=== PATIENT | male | born 1955 | race Caucasian/White ===

== ENCOUNTER 2016-09-12 10:55 | Emergency (ER) | payer OTHER ==
[~2016-09-12] VITALS: Ht 152.4 cm; Wt 62.4 kg
[2016-09-12 14:58] VITALS: BP 155/68
== END 2016-09-12 14:58 | disposition home or self-care (01) ==
LOC: ED 10:55
DX: M25.571 Pain in right ankle and joints of right foot (principal); Q66.89 Other specified congenital deformities of feet
CPT/HCPCS: J1885

== ENCOUNTER → 2018-08-09 | Outpatient (CLI) | payer OTHER ==
[~2018-08-09] VITALS: Ht 152.4 cm; Wt 59.0 kg
[2018-08-09 10:21] LABS: BASOPHIL % 0.4 % (0-2); PLATELET COUNT 164 x10^3mcL (130-400)
[2018-08-09 10:25] LABS: CALCIUM 8.6 mg/dL (8.5-10.1); CARBON DIOXIDE 31.4 mmol/L (21-32); CHLORIDE SERUM 106 mmol/L (98-107); CREATININE SERUM 0.8 mg/dL (0.7-1.3); GFR1 > 60 mL/min; GLUCOSE SERUM 94 mg/dL (74-106); POTASSIUM SERUM 4.2 mmol/L (3.5-5.1); SODIUM SERUM 142 mmol/L (136-145)
== END | disposition home or self-care (01) ==
LOC: DS 08:52 → RD 11:00 → DS 08-12 11:00 → OR 08-12 11:00 → EDSTATUS 08-12 11:00
PROVIDERS: Surgery
DX: K40.90 Unilateral inguinal hernia, without obstruction or gangrene, not specified as recurrent (principal)

== ENCOUNTER 2018-11-13 18:28 | Emergency (ER) | payer OTHER ==
[~2018-11-13] VITALS: Ht 152.4 cm; Wt 58.5 kg
[2018-11-13 18:31] VITALS: Ht 152.4 cm; Wt 58.5 kg
[2018-11-13 19:10] VITALS: BP 157/100
== END 2018-11-13 19:10 | disposition home or self-care (01) ==
LOC: ED 18:28
DX: J34.0 Abscess, furuncle and carbuncle of nose (principal); J45.909 Unspecified asthma, uncomplicated; J44.9 Chronic obstructive pulmonary disease, unspecified; Z98.890 Other specified postprocedural states

== ENCOUNTER 2019-01-26 14:23 | Inpatient (IN) | payer OTHER, MEDICAID ==
[~2019-01-26] VITALS: Ht 152.4 cm; Wt 53.3 kg
[2019-01-26 14:45] VITALS: Ht 152.4 cm; Wt 53.3 kg
--- NOTE | 2019-01-26 14:59 | NUR ---
PT AMBULATORY WITH STEADY GAIT TO RM
--- NOTE | 2019-01-26 15:00 | NUR ---
PT C/O ABSCESS TO RIGHT THIGH SINCE THURSDAY, PT STS "IT THINK IT IS A BUG BITE I WAS WORKING IN MY GARDEN ON THURSDAY" PT STS HE WENT TO [facility]RG[facility] THURSDAY AND THEY GAVE HIM AX HOWEVEVER "IT IS GETTING BIGGER" WITH 10/10 PAIN, DENIES HX DM PT IS AAOX4 IN NO ACUTE DISTRESS, ABSCESS WITH ERYTHEMA NOTED TO RIGHT THIGH
--- NOTE | 2019-01-26 15:10 | NUR ---
US BY MD ARNDT IN PROGRESS
--- NOTE | 2019-01-26 15:10 | NUR ---
MD ARNDT AT BEDSIDE PERFORMING MSE
--- NOTE | 2019-01-26 15:25 | NUR ---
PORTABLE XRAY AT BEDSIDE
[2019-01-26 15:32] LABS: BASOPHIL % 0.3 % (0-2); PLATELET COUNT 183 x10^3mcL (130-400); RED CELL DISTRIBUTION WIDTH 13.2 % (11.5-14.5)
--- NOTE | 2019-01-26 15:38 | NUR ---
PT REPORTS HX MRSA "ON HIS NOSE"
[2019-01-26 15:41] LABS: CARBON DIOXIDE 27.2 mmol/L (21-32); CHLORIDE SERUM 103 mmol/L (98-107); CREATININE SERUM 0.8 mg/dL (0.7-1.3); GFR1 > 60 mL/min; GLUCOSE SERUM 98 mg/dL (74-106); POTASSIUM SERUM 4.1 mmol/L (3.5-5.1); SODIUM SERUM 141 mmol/L (136-145)
--- NOTE | 2019-01-26 15:43 | NUR ---
PT IN POSITION OF COMFORT TALKING ON HIS PHONE IN NAD, RESP E/U, WILL CONTINUE TO MONITOR
[2019-01-26 15:45] LABS: ALBUMIN 3.3 g/dL (3.4-5.0); ALKALINE PHOSPHATASE 76 U/L (46-116); ALT/SGPT 44 U/L (16-63); AST/SGOT 24 U/L (15-37); BILIRUBIN TOTAL 0.4 mg/dL (0.20-1.00); TOTAL PROTEIN, SERUM 6.6 g/dL (6.4-8.2)
--- NOTE | 2019-01-26 16:45 | NUR ---
PT IN POSITION OF COMFORT WATCHING TV, PT DENIES NEED FOR PAIN MEDS AT THIS TIME, RESPS E/U IN NAD
[2019-01-26 17:28] LABS: MAGNESIUM 2.1 mg/dL (1.8-2.4); PHOSPHOROUS 3.5 mg/dL (2.5-4.9)
[2019-01-26 17:32] LABS: CHOLESTEROL/HDL RATIO 1.8
[2019-01-26 17:37] VITALS: BP 157/76
--- NOTE | 2019-01-26 17:48 | NUR ---
AWAKE AND ALERT, ORIENTED TO NAME, PLACE, TIME AND SITUATION. ABLE TO MAKE NEEDS KNOWN. BREATHING EVEN AND UNLABORED ON ROOM AIR. ADMISSION HISTORY AND ASSESSMENT DONE. ADMITTED FOR COMPLAINT OF PAIN, SWELLING AND REDNESS TO RIGHT UPPER LATERAL THIGH WHICH PT ATTRIBUTES TO A "BUG BITE". ENDORSED TO NURSE VAUGHAN.
--- NOTE | 2019-01-26 18:30 | NUR ---
PATIENT SEATED AT BEDSIDE EATING DINNER TRAY. HAS MILD BUT TOLERABLE PAIN TO R LEG. DENIES PRN PAIN CONTROL. WILL ENDORSE TO ONCOMING SHIFT, RESIDENT HAS NOT YET COME TO INTERVIEW PATIENT. CALL LIGHT IN REACH.
[2019-01-26 19:45] VITALS: BP 130/73
--- NOTE | 2019-01-26 19:45 | NUR ---
RECEIVED PT AWAKE ALERT AN DVERBALLY RESPONSIVE.DENIES CHESTPAIN AT THIS TIME.BP 130/73 MMHG,HR 81.PT WITH R THIGH WOUND WITH REDNESS/SWELLING NOTED.TENDER TO TOUCH.VT 10/10 TO THROBBING/SHARP PAIN.NORCO 7.5 MG PO ADMINISTERED.COMFORT MEASURES RENDRED.WEARS L FOOT BRACE TO PREVENT FOORT DROP.ON CONTACT ISOLATION FOR HX MRSA TO NARES.WILL OBSERVE GOODHANDWASHING TECHNIQUE.WILL CONTINUE TO MONITOR.
[2019-01-26 23:38] LABS: microscopic required? NO
[2019-01-26 23:47] LABS: UA SPECIFIC GRAVITY >=1.030 (1.005-1.035); urine erythrocyte NEGATIVE (NEGATIVE)
[2019-01-26 23:57] LABS: AMPHETAMINE QUAL UR NONE DETECTED (See below)
--- NOTE | 2019-01-27 04:36 | NUR ---
PT SLEPT WELL ALL NIGHT.MEDICATED WITH NORCO 7.5 MG PO X1 FOR R THIGH PAIN WITH GOOD RELIEF.ALL NEEDS MET.REMAINS ON CONTACT ISOLATION FOR HX MRSA TO NARES.GOODHANDWASHING TECHNIQUE OBSERVED.WILL CONTINUE TO MONITOR.
[2019-01-27 05:46] VITALS: BP 133/60
--- NOTE | 2019-01-27 06:10 | NUR ---
ULTRASOUND TO R THIGH BEING DONE AT THIS TIME.MORPHINE 1 MG IVP ADMIBNISTERED ORDERED.WILL CONTINUE TO MONITOR.
[2019-01-27 06:16] LABS: CALCIUM 8.3 mg/dL (8.5-10.1); CARBON DIOXIDE 26.8 mmol/L (21-32); CHLORIDE SERUM 108 mmol/L (98-107); CREATININE SERUM 0.8 mg/dL (0.7-1.3); GFR1 > 60 mL/min; GLUCOSE SERUM 89 mg/dL (74-106); POTASSIUM SERUM 4.2 mmol/L (3.5-5.1); SODIUM SERUM 142 mmol/L (136-145)
[2019-01-27 06:19] LABS: BASOPHIL % 0.4 % (0-2); PLATELET COUNT 176 x10^3mcL (130-400); RED CELL DISTRIBUTION WIDTH 13.1 % (11.5-14.5)
[2019-01-27 07:47] VITALS: BP 157/59
--- NOTE | 2019-01-27 09:36 | NUR ---
PATIENT SAT UP AT SIDE OF BED, C/O RT THIGH PAIN 6/10 AND MOVEMENT INTENSE MORE. NORCO 1 TAB PO AND DUE MED GIVEN. ANCEF 1 GM IVPB INFUSING TO RW IV INTACT AND PATENT, NEEDS MET. CONT TO MONITOR.
--- NOTE | 2019-01-27 10:59 | NUR ---
DR. ORNELAS IN THE ROOM SEEN PATIENT AND DISCUSS PLAN FOR INCISON AND DRAINAGE OF RT THIGH. KEEP PATIENT NPO. PATIENT WAS INSTRUCTED NOT TO DRINK AND EAT ANYTHING.
--- NOTE | 2019-01-27 12:57 | NUR ---
PATIENT BACK FROM CT IN BED NO COMPLAIN, IV PATENT AND FLUSH WELL. CONNECTED TO IVF ORDERED. NEEDS MET. CALL LIGHT WITHIN REACH.
--- NOTE | 2019-01-27 14:04 | NUR ---
Initial Nutrition Assessment: 203/B CURT AGGARWAL IA HR Dx: R leg cellulitis PMHx: Osteoarthritis, Hypercholesterolemia, Seasonal Allergies, Left inguinal Hernia PSHx: Other (hernia repair-1984), 3 Spinal fusion surgeries: 1985, 1999, and 2013 Labs: BUN 20H, CA 8.3L Meds: Colace, morphine, norco, zofran Diet: Regular PO Intake: (01/27) breakfast 100% Ht: 152.4 cm (60") Wt: 53.2 kg (117#) BMI: 22.9 kg/m2 Bed scale: 57.4 kg IBW: 106# (48 kg) %IBW:110 UBW: 117-120# Age: 63/M Food Allergies: NKFA Skin: scabby wound with redness and swelling to R upper lateral thigh Wagner: 21 Edema: none GI: Last BM: 01/24 Per H&P, Pt is a 63 yoM with PMH of Osteoarthritis and Hypercholesterolemia who came with cc of right leg lesion. Pt is an avid food order delivery runner and thinks that a black may have bitten him on his upper thigh. RDN Visit (01/27): Patient was alert and oriented. Patient's diet has been changed to NPO as pt. will be having I&D with Dr. Zavala either tonight or tomorrow morning per progress note (01/27). FNS received consult for 'mild malnutrition' on 01/27. Problem with: N/V/D/C: no Problems with: Chewing/Swallowing: none Current appetite: good Recent wt change: none %wt change: n/a Vitamin/Supplement use: centrum x 1 day Special diet at home: regular Physical activity: gardening Nutrition education given: Patient did not have any diet/ nutrition related questions at this time. Food-drug interactions: Colace- high fiber w/4675-7209 ml fluids Education given: n/a Estimated Nutritional Needs Based on current body weight 53 kg Energy: 1385-4141 kcal/d (25-30 kcal/kg) Protein: 53-64 g/d (1.0-1.2 g/kg) - geriatric maintenance/ inflammation Fluid: 2846-3864 ml/d (1 ml/kcal) or per doctor Nutrition Diagnosis 1. Increased calorie and protein needs related to inflammation/cellulitis as evidenced by estimated calorie and protein needs. Intervention 1. Recommend Regular diet post- op if medically appropriate/tolerated. Monitor/Evaluate Goal: PO intake at least 75% of estimated needs Monitor: PO intake, Labs, GI function F/U in 3-5 days as moderate risk
--- NOTE | 2019-01-27 14:04 | NUR ---
1. Recommend Regular diet post- op if medically appropriate/tolerated
--- NOTE | 2019-01-27 15:10 | NUR ---
PATIENT RESTING IN BED WITH FAMILY MEMBER AT BEDSIDE, UPDATE NO TIME FOR SURGERY YET. NEEDS MET. CONT TO MONITOR.
--- NOTE | 2019-01-27 16:06 | NUR ---
PATIENT RESTING IN BED NO COMPLAIN, WATCHING TV. VANCOMYCIN 1GM IVPB INFUSING TO RW IV PATENT. CONT TO MONITOR.
[2019-01-27 17:12] VITALS: BP 137/67
--- NOTE | 2019-01-27 17:51 | NUR ---
PATIENT RESTING IN BED EYES CLOSED. REMAIN NPO FOR POSSIBLE SURGERY TONIGHT. NO DISTRESS NOTED. CONT TO MONITOR.
--- NOTE | 2019-01-27 18:29 | NUR ---
DUMPER ASSIST PATIENT WITH BED BATH, NORCO 1 TAB PO GIVEN WITH SIP OF WATER FOR 10/10 TO RT THIGH. CONT TO MONITOR.
--- NOTE | 2019-01-27 19:30 | NUR ---
RECEIVED PT FROM DAY SHIFT RN. PT AAOX4 DENIES MURPHY/DIZZINESS. MED SURG PT DENIES CHEST PAIN/PRESSURE. LUNG SOUNDS CTA ON RA WITH NO SOB NOTED. IV RW PATENT, SL. RIGHT THIGH ERYTHEMA/EDEMA NOTED. PT DENIES ANY PAIN OR DISCOMFORT AT THIS TIME. CALL BUTTON WITHIN REACH. SAFETY PRECAUTIONS IN PLACE. FAMILY AT BEDSIDE. WILL CONTINUE TO MONITOR.
[2019-01-27 19:59] VITALS: BP 141/66
--- NOTE | 2019-01-27 23:04 | NUR ---
RECEIVED A CALL FROM DR ORNELAS AT THIS TIME, READ BACK CT RESULTS. NO NEW ORDERS AT THIS TIME. PER DR ORNELAS PT PROCEDURE WILL BE 01/28/19 AT 10 AM.
--- NOTE | 2019-01-28 01:00 | NUR ---
PT RESTING. BREATHING EVEN AND UNLABORED WITH NO SIGNS OF DISTRESS. CALL BUTTON WITHIN REACH. SAFETY PRECAUTIONS IN PLACE. WILL CONTINUE TO MONITOR.
--- NOTE | 2019-01-28 05:08 | NUR ---
PT SLEPT MOST OF THE NIGHT WITH NO SIGNS OF DISTRESS. BREATHING EVEN AND UNLABORED ON RA. PT IV PATENT, SL. PT DENIES ANY PAIN OR DISCOMFORT. PT MEDICATED PER EMAR. PT NPO SINCE MIDNIGHT. CALL BUTTON WITHIN REACH. SAFETY PRECAUTIONS IN PLACE. WILL CONTINUE TO MONITOR AND ENDORSE CARE TO DAY SHIFT RN.
[2019-01-28 05:23] VITALS: BP 126/60
[2019-01-28 06:11] LABS: BASOPHIL % 0.4 % (0-2); PLATELET COUNT 213 x10^3mcL (130-400); RED CELL DISTRIBUTION WIDTH 13.2 % (11.5-14.5)
[2019-01-28 06:25] LABS: CALCIUM 8.7 mg/dL (8.5-10.1); CARBON DIOXIDE 27.4 mmol/L (21-32); CHLORIDE SERUM 108 mmol/L (98-107); CREATININE SERUM 0.7 mg/dL (0.7-1.3); GFR1 > 60 mL/min; GLUCOSE SERUM 92 mg/dL (74-106); MAGNESIUM 1.9 mg/dL (1.8-2.4); PHOSPHOROUS 3.9 mg/dL (2.5-4.9); POTASSIUM SERUM 3.9 mmol/L (3.5-5.1); SODIUM SERUM 143 mmol/L (136-145)
--- NOTE | 2019-01-28 07:23 | NUR ---
PT RESTING, DENIES PAIN. NO SIGNS OF DISTRESS. ENDORSED CARE TO DAY SHIFT RN, ALL QUESTIONS ADDRESSED.
--- NOTE | 2019-01-28 07:35 | NUR ---
RECEIVED PATIENT RESTING IN BED COMFORTABLY A/O X4, NO NEURO DEFICITS NOTED. BREATHING EVEN AND UNLABBORED ON ROOM AIR, DENIES SOB, NO DISTRESS NOTED, DENIES CHEST PAIN. IV TO RW H/L INTACT AND PATENT. PATIENT NOTED WITH REDNESS AND SLIGHT SWELLING TO RIGHT OUTER THIGH, MARKED. PATIENT IS NPO FOR PROCEDURE THIS AM. GARCIA INSERTER OPERATOR AT BEDSIDE, ALL QUESTIONS AND CONCERNS ADDRESSED. INSTRUCTED PATIENT TO CALL FOR ASSISTANCE IF NEEDED. SAFETY PRECAUTIONS MAINTAINED. WILL MONITOR.
[2019-01-28 08:31] VITALS: BP 148/64
--- NOTE | 2019-01-28 09:00 | NUR ---
PATIENT SITTING UP AT EDGE USING CHG WIPES. NO DISTRESS NOTED, ALL NEEDS ATTENDED TO, SAFETY PRECAUTIONS MAINTAINED. WILL MONITOR.
--- NOTE | 2019-01-28 09:40 | NUR ---
PATIENT TAKEN DOWN TO OR VIA GURNEY FOR PROCEDURE.
--- NOTE | 2019-01-28 12:53 | NUR ---
RECEIVED PATIENT BACK FOR PACU S/P I&D RIGHT THIGH WITH BIOPSY. PATIENT A/O X4, ABLE TO AMBULATE FROM GURNEY TO BED, SITTING UP AT EDGE OF BED, DENIES PAIN, NO DISTRESS NOTED, SON AT BEDSIDE. IV TO RW H/L INTACT AND PATENT, DRESSING TO RT THIGH CDI. VSS. ALL NEEDS ATTENDED TO, SAFETY PRECAUTIONS MAINTAINED. WILL MONITOR.
[2019-01-28 12:56] VITALS: BP 152/73
--- NOTE | 2019-01-28 14:14 | NUR ---
PATIENT SITTING UP AT EDGE OF BED EATING LUNCH, TOLERATING WELL, NO DISTRESS NOTED, DENIES ANY PAIN. ALL NEEDS ATTENDED TO, SAFETY PRECAUTIONS MAINTAINED. WILL MONITOR.
--- NOTE | 2019-01-28 16:34 | NUR ---
PATIENT SITTING UP AT EDGE OF BED ON HIS CELL PHONE, NO DISTRESS NOTED, DENIES ANY PAIN. DUE MEDICATION GIVEN, IV TO RW INTACT INFUSING IV ABX WELL. ALL NEEDS ATTENDED TO, SAFETY PRECAUTIONS MAINTAINED. WILL MONITOR.
--- NOTE | 2019-01-28 16:45 | NUR ---
RECEIVED ENDORSEMENT FROM JOSH HOANG.
--- NOTE | 2019-01-28 17:20 | NUR ---
PT IN BED, RESTING COMFORTABLY. NO ACUTE RESPIRATORY DISTRESS, CHEST PAIN, OR DISCOMFORT NOTED. SIDE RAILS UP X 2, BED IN LOW POSITION, CALL LIGHT WITHIN REACH. WILL ENDORSE TO NOC SHIFT.
[2019-01-28 17:36] VITALS: BP 128/48
--- NOTE | 2019-01-28 19:20 | NUR ---
RECIEVED PT FROM DAY NURSE. PT RESTING IN BED COMFORTABLY. PT A/OX4, CALM AND COOPERATIVE AT THIS TIME. PALPABLE PULSES, NO EDEMA NOTED. BREATHING E/U ON RA. DENIES SOB. REPORTED HEADACHE AT TIME TIME. ABD SOFT AND ROUND. NO PAIN OR TENDERNESS TO PALPATION. LAST BOWEL MOVEMENT 01/28. R THIGH INCSISION COVERED WITH DRESSING CDI. BED AT LOWEST POSITION. CALL LIGHT WITHIN REACH. WILL CONTINUE TO MONITOR.
--- NOTE | 2019-01-28 19:40 | NUR ---
PT COMPLAINING OF A HEADACHE. MEDICATED WITH TYLENOL PRN. WILL CONTINUE TO MONITOR.
[2019-01-28 21:08] VITALS: BP 132/63
--- NOTE | 2019-01-28 23:53 | NUR ---
PT RESTING IN BED COMFORTABLY. NO S/S OF PAIN OR DISTRESS AT THIS TIME. BREATHING E/U ON RA. NO S/S OF ACUTE DISTRESS AT THIS TIME. BED AT LOWEST POSITION. CALL LIGHT WITHIN REACH. WILL CONTINUE TO MONITOR.
--- NOTE | 2019-01-29 06:00 | NUR ---
PT RFA IV INFILTRATED. IV DISCONTINUED. ICE PACK GIVEN. R ARM ELEVATED. IV TO LFA INSERTED. WILL CONTINUE TO MONITOR.
[2019-01-29 06:07] VITALS: BP 122/55
--- NOTE | 2019-01-29 06:25 | NUR ---
PT RESTING IN BED COMFORTABLY. EDEMA TO RFA DECREASING. PT DENIES PAIN AT THIS TIME. BREATHING E/U ON RA. NO SIGNS OF ACUTE DISTRESS AT THIS TIME. WILL ENDORSE TO DAY NURSE.
[2019-01-29 07:02] LABS: BASOPHIL % 0.2 % (0-2); PLATELET COUNT 242 x10^3mcL (130-400); RED CELL DISTRIBUTION WIDTH 13.1 % (11.5-14.5)
--- NOTE | 2019-01-29 07:30 | NUR ---
RECEIVED PT FROM COTTON CHOPPER, RESTING IN BED. ASSESSED AND DOCUMENTED. DENIES ANY PAIN. SAFTEY PRECAUTIONS ARE IN PLACE. WILL MONITOR.
[2019-01-29 07:44] LABS: CARBON DIOXIDE 26.8 mmol/L (21-32); CHLORIDE SERUM 101 mmol/L (98-107); CREATININE SERUM 0.8 mg/dL (0.7-1.3); GFR1 > 60 mL/min; GLUCOSE SERUM 132 mg/dL (74-106); POTASSIUM SERUM 4.1 mmol/L (3.5-5.1); SODIUM SERUM 137 mmol/L (136-145)
[2019-01-29 08:43] VITALS: BP 139/38
--- NOTE | 2019-01-29 10:00 | NUR ---
PT RESTING IN BED, STABLE. SON AT BEDSIDE. KAYLI ZELAYA SPOKE WITH PT AND HIS SON.
--- NOTE | 2019-01-29 11:54 | NUR ---
PT C/O PAIN IN THE RT THIGH, INCISION AREA,09/22. ADMINISTERED NORCO PO ORDERED AT 1054 AND REASSESSED NOW AND PT SAID HE DOESNOT HAVE ANY PAIN NOW.
--- NOTE | 2019-01-29 14:00 | NUR ---
PT AMBULATED IN THE HALLWAY WELL. DENIES ANY PAIN. STABLE.
--- NOTE | 2019-01-29 16:00 | NUR ---
CHANGED RT THIGH DRESSING AND REPACKED AND DID DRESSING. DENIES ANY PAIN. STABLE.
[2019-01-29 17:44] VITALS: BP 105/63
--- NOTE | 2019-01-29 19:20 | NUR ---
PT RESTING IN BED COMFORTABLY. DENIES ANY PAIN. STABLE. GAVE REPORT TO PVC LOADER NURSE.
--- NOTE | 2019-01-29 19:30 | NUR ---
RECEIVED PT RESTING IN BED, NO ACUTE DISTRESS NOTED. PT AOX4, DENIES MURPHY/DIZZINESS. MEDSURG PT, DENIES CP. PULSES PALPABLE BILAT, PT S/P I & D RIGHT THIGH W/ BIOPSY, DSG CHANGED IN DAYSHIFT CDI. NO ERYTHEMA NOTEDEDUCATED PT TO MONITOR FOR DRAINAGE, REDNESS. PT VERBALIZES UNDERSTANDING. RESP EVEN AND UNLABORED ON RA, DENIES SOB. ABD SOFT, ROUND, DENIES ABD PAIN. PT VOIDS FREELY W/O DYSURIA. GENERALIZED WEAKNESS, PT HAS HX OF DROPPED FOOT, USES A FOOT BRACE TO AMBULATE. EDUCATED PT TO BRACE WHEN AMBUALTING FOR SAFETY OR CALL FOR HELP, PT VERBALIZES UNDERSTANDING. IV SITE TO THE RFA PATENT, SALINE LOCKED AT THIS TIME. ALL COMFORT AND SAFETY MEASURES PROVIDED FOR, CALL LIGHT WITHIN REACH, BED INLOWEST POSITION, WILL CONTINUE TO MONITOR.
--- NOTE | 2019-01-29 20:30 | NUR ---
VISUALIZED PT AMBULATING TO RESTROOM, GAIT SLOW/STEADY. EDUCATED PT TO PULL CALL LIGHT IF NEEDING HELP WHILE IN RESTROOM, PT VERBALIZES UNDERSTANDING, WILL CONTINUE TO MONITOR.
--- NOTE | 2019-01-29 20:40 | NUR ---
PT BACK IN BED W/O ANY DIFFICULTY. PT REPORTS PAIN UNDER CONTROL AT THIS TIME, CALL LIGHT WITHIN REACH, BED IN LOWEST POSITION, WILL CONTINUE TO MONITOR.
[2019-01-29 21:22] VITALS: BP 137/59
--- NOTE | 2019-01-30 04:58 | NUR ---
PT RESTED IN INTERVALS DURING SHIFT, NO ACUTE CHANGES OCCURRING OVERNIGHT. PT DENIES PAIN DURING SHIFT, DSG TO RT UPPER THIGH REMAINS CDI. PT RECEIVED VANCO; TOLERATED WELL. DENIES N/V/D. PT IV SITE REMAINS PATENT TO RFA, NO REDNESS, SWELLING OR PAIN NOTED. ALL COMFORT AND SAFETY MEASURES PROVIDED FOR, CALL LIGHT WITHIN REACH, BED IN LOWEST POSITION, WILL CONTINUE TO MONITOR.
[2019-01-30 05:14] VITALS: BP 106/64
[2019-01-30 06:45] LABS: CALCIUM 8.2 mg/dL (8.5-10.1); CARBON DIOXIDE 27.3 mmol/L (21-32); CHLORIDE SERUM 108 mmol/L (98-107); CREATININE SERUM 0.8 mg/dL (0.7-1.3); GFR1 > 60 mL/min; GLUCOSE SERUM 92 mg/dL (74-106); POTASSIUM SERUM 4.3 mmol/L (3.5-5.1); SODIUM SERUM 143 mmol/L (136-145)
[2019-01-30 07:14] LABS: BASOPHIL % 0.4 % (0-2); PLATELET COUNT 219 x10^3mcL (130-400); RED CELL DISTRIBUTION WIDTH 13.3 % (11.5-14.5)
--- NOTE | 2019-01-30 07:19 | NUR ---
ENDORSED ALL CARE TO DAYSHIFT NURSE, ALL QUESTIONS AND CONCERNS ADDRESSED. ALL COMFORT AND SAFETY MEASURES PROVIDED FOR, CALL LIGHT WITHIN REACH, BED IN LOWEST POSITION.
--- NOTE | 2019-01-30 07:30 | NUR ---
RECIEVED PT FROM VERIFICATION REP. ASSESSED AND DOCUMENTED. DENIES ANY PAIN. STABLE. SAFTEY PRECAUTIONS ARE IN PLACE. WILL MONITOR.
--- NOTE | 2019-01-30 07:47 | NUR ---
LAB CALLED FOR VANCOMYCIN TROUGH 40.6. INFORMED LAB STAFF ABOUT VANCO TROUGH WAS DRAWN WRONG TIME, ORDER WAS TO DRAW AT 1500. ALSO SPOKE WITH LAB SUPERVISIOR ABOUT THAT. SHE SAID SHE WILL MAKESURE VANCO TROUGH TO DRAW AT 1500 TODAY, REQUESTED TO DELETE THE WRONG RESULT. ALSO INFORMED PHARMACIST MS.HASSAN PEARSON AND CHARGE NURSE.
--- NOTE | 2019-01-30 09:00 | NUR ---
INFORMED PHARMACIST JASSON PEARSON ABOUT LAB REQUESTING TO REORDER VANCO TROUGH. SHE SAID SHE WILL TALK TO LAB. CHARGE NURSE AWARE.
[2019-01-30 09:47] VITALS: BP 131/75
--- NOTE | 2019-01-30 10:33 | NUR ---
PT C/O RT THIGH PAIN,09/22. ADMINISTERED NORCO PO ORDERED AT 0933 AND REASSESSED NOW. PT SAID HE DOESNOT FEEL PAIN ANYMORE. STABLE.
[2019-01-30 16:53] VITALS: BP 138/64
--- NOTE | 2019-01-30 18:07 | NUR ---
RT THIGH WOUND DRESSING AND PACKING CHANGED. NEW DRESSING APPLIED. PT C/O RT THIGH PAIN,09/22 AND ADMINISTERED NORCO PO ORDERED. WILL MONITOR.
--- NOTE | 2019-01-30 18:17 | NUR ---
PHARMACIST AWARE ABOUT VANCO RANDOM 17.2 AND HE ORDERED VANCO TO GIVE AT 1999. WILL GIVE REPORT TO NIGHT NURSE. CHARGE NURSE AWARE.
--- NOTE | 2019-01-30 19:07 | NUR ---
PT SITTING UP IN THE BED. DENIES ANY PAIN THIS TIME. STABLE. GAVE REPORT TO FIG BAR MACHINE OPERATOR NURSE.
--- NOTE | 2019-01-30 19:30 | NUR ---
RECEIVED PT RESTING IN BED, NO ACUTE DISTRESS NOTED. PT AOX4, DENIES MURPHY/DIZZINESS. MEDSURG PT, DENIES CP. PULSES PALPABLE BILAT, PT S/P I & D RIGHT THIGH W/ BIOPSY 01/28, DSG CHANGED IN DAYSHIFT 01/30 CDI. NO ERYTHEMA NOTED. EDUCATED PT TO MONITOR FOR DRAINAGE, REDNESS. PT VERBALIZES UNDERSTANDING. RESP EVEN AND UNLABORED ON RA, DENIES SOB. ABD SOFT, ROUND, DENIES ABD PAIN. PT VOIDS FREELY W/O DYSURIA. GENERALIZED WEAKNESS, PT HAS HX OF DROPPED FOOT, USES A FOOT BRACE TO AMBULATE. EDUCATED PT TO WEAR BRACE WHEN AMBUALTING FOR SAFETY OR CALL FOR HELP, PT VERBALIZES UNDERSTANDING. IV SITE TO THE [place] PATENT, SALINE LOCKED AT THIS TIME. PT TO RECEIVE VANCO THIS EVENING. ALL COMFORT AND SAFETY MEASURES PROVIDED FOR, CALL LIGHT WITHIN REACH, BED INLOWEST POSITION, WILL CONTINUE TO MONITOR.
--- NOTE | 2019-01-30 20:30 | NUR ---
PHONED PHARMACIST (MARIAM) IN REGARDS TO PROVIDING VANCO THIS EVENING D/T SOME ISSUES WITH VANCO TROUGH WERE REPORTING DURING DAYSHIFT. (LAB DRAW VANCO TROUGH AT INCORRECT TIME AND PT WAS ACTUALL YRECEIVING VANCO AT THAT TIME WHICH CAUSED A FALSE HIGH TROUGH).INQUIRED SINCE NO NEW VANCO TROUGH HAS BEEN ORDERED FOR TOMORROW. PER PHARMACIST, VANCO TROUGH DRAWN TODAY WITH A LEVEL OF 17.2, OK TO HANG VANCO AND PER PHARMACIST, VANCO TROUGH WILL BE ORDERED AGAIN FOR SOMETIME ON THURSDAY GIVEN THE PT VANCO TROUGH LEVEL THIS AFTERNOON WHICH WAS THERAPEUTIC. ALL QUESTIONS AND CONCERNS ADDRESSED, WILL ENDORSE THIS INFORMATION TO NEXT NURSE FOR CONTINUITY OF CARE.
[2019-01-30 20:47] VITALS: BP 147/63
--- NOTE | 2019-01-30 21:29 | NUR ---
PT SEEN AMBULATING THROUGH HALLWAY, GAIT SLOW BUT STEADY. INQUIRED IF PT WOULD LIKE ASSISTANCE PUTTING HIS BRACE ON FOR HIS LEFT DROP FOOT, PT DENIES THE NEED FOR IT. PT WEARING NONSLIP SOCKS, EDUCATED PT ON STAYING CLOSE TO SIDE RAILING FOR SUPPORT AND NOT WALKING TOO MUCH TO THE POINT OF EXHAUSTION. PT VERBALIZES UNDERSTANDING AND REPORTS BEING VERY ACTIVE AT HOME AND DENIES FALLS. WILL CONTINUE TO MONITOR FOR SAFETY.
--- NOTE | 2019-01-31 05:05 | NUR ---
PT RESTED IN INTERVALS DURING SHIFT, NO ACUTE CHANGES OCCURRING OVERNIGHT. PT AMBULATED AROUND NURSING STATION W/O DIFFICULTY. PT IN GOOD SPIRITS AND LOOKING FORWARD TO GOING HOME. PT DENIES N/V/D. IV SITE REMAINS PATENT TO LUE, TOLERATING ANTIBIOTIC WELL. DSG TO RT UPPER THIGH REMAINS CDI. ALL COMFORT AND SAFETY MEASURES PROVIDED FOR, CALL LIGHT WITHIN REACH, BED IN LOWEST POSITION, WILL CONTINUE TO MONITOR.
[2019-01-31 05:47] LABS: BASOPHIL % 0.8 % (0-2); PLATELET COUNT 239 x10^3mcL (130-400); RED CELL DISTRIBUTION WIDTH 13.2 % (11.5-14.5)
[2019-01-31 05:51] VITALS: BP 129/62
[2019-01-31 06:10] LABS: CALCIUM 8.1 mg/dL (8.5-10.1); CARBON DIOXIDE 30.2 mmol/L (21-32); CHLORIDE SERUM 107 mmol/L (98-107); CREATININE SERUM 0.9 mg/dL (0.7-1.3); GFR1 > 60 mL/min; GLUCOSE SERUM 87 mg/dL (74-106); SODIUM SERUM 142 mmol/L (136-145)
--- NOTE | 2019-01-31 07:44 | NUR ---
A+OX4, NO RESPRIATORY DISTRESS NOTED, DENIES PAIN, MEDSURG, PULSES MODERATE AND EQUAL LANE, NO EDEMA NOTED, LUNG SOUNDS CTA, TOLERATING RA, BOWEL SOUNDS ACTIVE, VOIDING FREELY, GENERALIZED WEAKNESS, R FOOT DROP WITH BRACE AT BEDSIDE, INCISION TO R UPPER THIGH S/P I+D WITH DRESSING CDI, IV IN LUE SALINE LOCKED, SITE WNL.
[2019-01-31 08:32] VITALS: BP 134/65
--- NOTE | 2019-01-31 09:47 | NUR ---
PT SITTING AT EDGE OF BED, NO RESPIRATORY DISTRESS NOTED, COMPLAINING OF RLE PAIN, REUQESTING NORCO PO, NORCO PO GIVEN, CALL LIGHT WITHIN REACH.
[2019-01-31] MEDS ORDERED: CLINDAMYCIN300 M1 PO (10:58)
--- NOTE | 2019-01-31 11:25 | NUR ---
PT SITTING AT EDGE OF BED, STATES PAIN IS TOLERABLE AT THIS TIME AFTER RECEIVING NORCO PO, PT SPEAKING TO MEDICAL LAB TECHNICIAN NEHEMIAS VALVERDE VIA TELEPHONE, CALL LIGHT WITHIN REACH.
--- NOTE | 2019-01-31 14:27 | NUR ---
IV IN L UPPER ARM SWOLLEN AND ERYTHEMA, PT COMPLAINING OF PAIN AT SITE. IV REMOVED FROM L UPPER ARM WITH CATHETER INTACT, GAUZE AND TAPE PLACED ON SITE, NO RESPIRATORY DISTRESS NOTED, CALL LIGHT WITHIN REACH. GABBI CRUZ RN TO PLACE ANOTHER IV.
--- NOTE | 2019-01-31 15:45 | NUR ---
IV PLACED IN RFA BY LYNDA MORENO, BLOOD RETURN PRESENT, FLUSHING WELL.
[2019-01-31 17:13] VITALS: BP 134/65
--- NOTE | 2019-01-31 17:17 | NUR ---
PT GIVEN DEMONSTRATION OF DAILY WOUND CARE, INCLUDING CLEANSE RLE WOUND WITH NS, PAT DRY, PACK WITH IODOFORM, COVER WITH GAUZE AND ISLAND DRESSING. PT WITNESSED I PERFORMED WOUND CARE AND VERBALIZED UNDERSTANDING. PT GIVEN ALL WOUND CARE SUPPLIES INCLUDING NS, IODOFORM, GAUZE, SCISSORS, TWEEZERS, AND ISLAND DRESSINGS.
--- NOTE | 2019-01-31 17:46 | NUR ---
PT GIVEN DC INSTRUCTIONS, WOUND CARE REINFORCED WRITTEN EARLIER, PT GIVEN PRESCRIPTION AND VERBALIZED UNDERSTANDING. IV REMOVED WITH CATHETER INTACT, GAUZE AND TAPE PLACED ON SITE TO RFA. PT AWAITING DOUGHNUT MACHINE OPERATOR BY FAMILY.
--- NOTE | 2019-01-31 17:55 | NUR ---
PT OFF UNIT VIA WC WITH AL BELONGINGS INCLUDING WOUND CARE SUPPLIES ESCORTED BY BODY JOINER.
--- NOTE | 2019-02-01 08:29 | NUR ---
WOUND CARE CONSULT NOT DONE, PT. DISCHARGED.
== END 2019-01-31 17:50 | disposition home health service (06) | DRG 603 ==
LOC: ED 14:23 → MU 16:30
PROVIDERS: Emergency Medicine; Family Medicine Addiction Medicine; ADMIT Internal Medicine
PROC: 0HBHXZX Excision of Right Upper Leg Skin, External Approach, Diagnostic (ICD-10-PCS; 2019-01-28)
PROC: 0Y970ZZ Drainage of Right Femoral Region, Open Approach (ICD-10-PCS; principal; 2019-01-28 10:00)
DX: L03.115 Cellulitis of right lower limb (principal); E44.1 Mild protein-calorie malnutrition; L02.415 Cutaneous abscess of right lower limb; B95.61 Methicillin susceptible Staphylococcus aureus infection as the cause of diseases classified elsewhere; M16.11 Unilateral primary osteoarthritis, right hip; K40.90 Unilateral inguinal hernia, without obstruction or gangrene, not specified as recurrent; J44.9 Chronic obstructive pulmonary disease, unspecified; E78.00 Pure hypercholesterolemia, unspecified; F15.21 Other stimulant dependence, in remission; Z68.24 Body mass index [BMI] 24.0-24.9, adult; Z87.891 Personal history of nicotine dependence; Z98.1 Arthrodesis status
CPT/HCPCS: 83880; C9113; G0378; J0690; J1170; J2001; J2270; J2405; J2704; J3010; J3370; J3490; J7030; J7050; J7120; Q0092; Q9967

== ENCOUNTER → 2019-03-11 | Outpatient (CLI) | payer OTHER, MEDICAID ==
[~2019-03-11] MED LIST: CLINDAMYCIN300 M1 PO
[2019-03-11 10:13] LABS: CALCIUM 8.8 mg/dL (8.5-10.1); CARBON DIOXIDE 29.6 mmol/L (21-32); CHLORIDE SERUM 107 mmol/L (98-107); CREATININE SERUM 0.8 mg/dL (0.7-1.3); GFR1 > 60 mL/min; GLUCOSE SERUM 95 mg/dL (74-106); POTASSIUM SERUM 4.9 mmol/L (3.5-5.1); SODIUM SERUM 143 mmol/L (136-145)
== END | disposition home or self-care (01) ==
LOC: LB 09:49
PROC: BW24ZZZ Computerized Tomography (CT Scan) of Chest and Abdomen (ICD-10-PCS; principal; 2019-03-11)
DX: I71.9 Aortic aneurysm of unspecified site, without rupture (principal); I10 Essential (primary) hypertension
CPT/HCPCS: Q9967

== ENCOUNTER 2019-04-13 07:06 | Day surgery (SDC) | payer OTHER ==
[~2019-04-13] VITALS: Ht 152.4 cm; Wt 57.1 kg
[2019-04-13 07:38] VITALS: BP 141/73
[2019-04-13 10:56] VITALS: BP 139/65
== END 2019-04-13 10:50 | disposition home or self-care (01) ==
LOC: DS 07:06 → OR 08:30 → DS 08:30
DX: K63.5 Polyp of colon (principal); K57.30 Diverticulosis of large intestine without perforation or abscess without bleeding; J45.909 Unspecified asthma, uncomplicated; M19.90 Unspecified osteoarthritis, unspecified site; F41.9 Anxiety disorder, unspecified; Z98.890 Other specified postprocedural states; Z79.899 Other long term (current) drug therapy
CPT/HCPCS: 45378; J1200; J1610; J2250; J2310; J3010; J3490